=== PATIENT | male | born 1945 | race Caucasian/White ===

== ENCOUNTER 2019-12-23 16:24 | Emergency (ER) | payer MEDICARE ==
[~2019-12-23] VITALS: Ht 170.2 cm; Wt 81.8 kg
[~2019-12-23 16:24] MED LIST: ASPI-611 PO; ATOR80TA PO; CALC-793 PO; MULT-1085 PO; VALS80TA2 PO; VITA1TAB20 PO; VITE1000C PO
[2019-12-23] MEDS ORDERED: bacitracin 15gm ointment TP ONE (18:35)
[2019-12-23 18:54] VITALS: BP 155/75
== END 2019-12-23 18:55 | disposition home or self-care (01) ==
LOC: ER 16:25
DX: S41.102A Unspecified open wound of left upper arm, initial encounter (principal); S41.101A Unspecified open wound of right upper arm, initial encounter; I48.91 Unspecified atrial fibrillation; Z86.73 Personal history of transient ischemic attack (TIA), and cerebral infarction without residual deficits; Z79.82 Long term (current) use of aspirin; Z79.899 Other long term (current) drug therapy; W18.49XA Other slipping, tripping and stumbling without falling, initial encounter; Y93.89 Activity, other specified; Y92.89 Other specified places as the place of occurrence of the external cause; Y99.8 Other external cause status
CPT/HCPCS: 70450; 72125; 99285

== ENCOUNTER 2020-06-02 08:32 | Inpatient (IN) | payer MEDICARE ==
[~2020-06-02] VITALS: Ht 177.8 cm; Wt 84.1 kg
[2020-06-02] MEDS ORDERED: normal saline 1000ml 1,000 ML IV ONE (09:20)
[2020-06-02 09:58] LABS: BASOPHILS % (AUTO) 0.2 % (0-1); EOSINOPHILS % (AUTO) 0 % (0-6); HEMATOCRIT 32.5 % (42.0-52.0); LYMPHOCYTES # (AUTO) 0.8 X10'3 (1.1-4.8); LYMPHOCYTES % (AUTO) 4.9 % (21-51); MEAN CORPUSCULAR HEMOGLOBIN 32.3 PG (27.0-31.0); MEAN CORPUSCULAR HGB CONC 33.9 g/dL (33.0-36.5); MEAN CORPUSCULAR VOLUME 95.2 FL (78-98); MEAN PLATELET VOLUME 9.1 FL (7.4-10.4); MONOCYTES # (AUTO) 1.1 X10'3 (0-0.9); MONOCYTES % (AUTO) 7.2 % (2-12); NEUTROPHILS # (AUTO) 13.7 X10'3 (1.8-7.7); NEUTROPHILS % (AUTO) 87.7 % (42-75); PLATELET COUNT 209 X10'3 (140-440); RED BLOOD COUNT 3.41 X10'6 (4.70-6.10); RED CELL DISTRIBUTION WIDTH 13.5 % (11.5-14.5); WHITE BLOOD COUNT 15.6 X10'3 (4.5-11.0)
[2020-06-02 10:13] LABS: ALANINE AMINOTRANSFERASE 30 U/L (12-78); ALBUMIN 2.3 G/DL (3.4-5.0); ALBUMIN/GLOBULIN RATIO 0.9 (1.1-1.5); ALKALINE PHOSPHATASE 39 IU/L (46-116); ANION GAP 5 (8-16); ASPARTATE AMINO TRANSFERASE 20 U/L (10-37); BILIRUBIN,TOTAL 0.4 MG/DL (0.1-1.0); BLOOD UREA NITROGEN 30 MG/DL (7-18); BUN/CREATININE RATIO 31.6 (5.4-32.0); CALCIUM 7.9 MG/DL (8.5-10.1); CHLORIDE 109 MMOL/L (99-107); CREATININE 0.95 MG/DL (0.60-1.10); GLUCOSE 232 MG/DL (70-104); POTASSIUM 4.3 MMOL/L (3.5-5.1); SODIUM 140 MMOL/L (135-145); TOTAL CARBON DIOXIDE 25.9 MMOL/L (24-32); TOTAL PROTEIN 4.8 G/DL (6.4-8.2); eGFR 77 ML/MIN
[2020-06-02 10:20] LABS: MAGNESIUM 1.7 MG/DL (1.5-2.4)
[2020-06-02 10:50] LABS: CLARITY,URINE CLEAR (Clear); COLOR,URINE STRAW (Yellow); GLUCOSE, URINE 250 mg/dl (Neg); KETONES,URINE 15 mg/dl (Neg); LEUKOCYTE ESTERASE ,URINE NEGATIVE (Neg); NITRITES, URINE NEGATIVE (Neg); OCCULT BLOOD,URINE NEGATIVE (Neg); PROTEIN,URINE NEGATIVE (Neg); UROBILINOGEN,URINE 0.2 E.U/dL (0.2-1.0)
[2020-06-02 10:53] LABS: UA COLLECTION TYPE CLN CATCH MIDSTREAM
[2020-06-02] MEDS ORDERED: ondansetron/PF 4mg/2ml inj IV PRN (13:20)
[2020-06-02] MEDS ORDERED: mag hydrox/Alum hydrox/simeth 30ml oral suspension PO PRN (13:20)
[2020-06-02] MEDS ORDERED: morphine 2 MG/ML inj. syringe IV PRN ×2 (13:20)
[2020-06-02] MEDS ORDERED: magnesium hydroxide 30ml (MOM) UD suspension PO PRN (13:20)
[2020-06-02] MEDS ORDERED: acetaminophen 325mg tablet PO PRN (13:20)
[2020-06-02] MEDS ORDERED: RIVA20TA PO (13:45)
[2020-06-02] MEDS ORDERED: METR-159 PO (13:45)
[2020-06-02] MEDS ORDERED: ATOR20TA66 PO (13:45)
[2020-06-02] MEDS ORDERED: HYDR12.55 PO (13:45)
[2020-06-02] MEDS ORDERED: LOSA100T57 PO (13:45)
[2020-06-02] MEDS ORDERED: PRED20TA PO (13:45)
[2020-06-02 15:27] VITALS: BP 191/65
[2020-06-02] MEDS: normal saline 1000ml 1,000 ML IV SCH ×2 (16:04→23:20)
[2020-06-02] MEDS ORDERED: CHOL10006 PO (18:14)
--- NOTE | 2020-06-02 18:30 | NUR ---
Patient in room MED 308. I have received report from Lakesha SMITH and had the opportunity to ask questions and assume patient care.
[2020-06-02 19:30] VITALS: BP_SYST 121; BP_SYST 125; BP_SYST 97; BP_DIAS 54; BP_DIAS 65; BP_DIAS 67
--- NOTE | 2020-06-02 19:55 | NUR ---
pt had 2 lg black BM, said no hx of having. Informed Hosp, order for occult stool sample.
[2020-06-02] MEDS ORDERED: rivaroxaban 20mg tablet PO SCH (21:00)
[2020-06-02] MEDS: atorvastatin 20mg tablet PO SCH (21:09)
[2020-06-02] MEDS: predniSONE 20 mg tablet PO SCH (21:10)
[2020-06-02] MEDS: losartan 50mg tablet PO SCH (21:10)
[2020-06-02 22:30] VITALS: BP 125/67
[2020-06-02 23:06] LABS: OCCULT BLOOD STOOL POSITIVE (Neg)
[2020-06-03] VITALS (12 sets, daily range): BP systolic 97–191; BP diastolic 36–77
[2020-06-03] MEDS: normal saline 1000ml 1,000 ML IV SCH (01:40)
--- NOTE | 2020-06-03 05:32 | NUR ---
Page Sent promotional table spacer PAGER ID: [phone] MESSAGE: Pt Harjit Mccullough rm #308, positive occult sample, Pt on Xartelto, do you want any Coags drawn? -Alison #[id number] Addendum: 06/03/20 at 0533 by Yadira James RN Kj Mitchell not Hale Addendum: 06/03/20 at 0547 by Yadira James RN Not aric Mccullough, wrong name, Name is Kj Hanna
--- NOTE | 2020-06-03 05:47 | NUR ---
Per Hospitalist no new orders
[2020-06-03 06:20] LABS: BASOPHILS % (AUTO) 0.2 % (0-1); EOSINOPHILS % (AUTO) 0 % (0-6); HEMATOCRIT 25.2 % (42.0-52.0); HEMOGLOBIN 8.7 g/dl (14.0-17.9); LYMPHOCYTES # (AUTO) 1.5 X10'3 (1.1-4.8); LYMPHOCYTES % (AUTO) 12.1 % (21-51); MEAN CORPUSCULAR HEMOGLOBIN 32.8 PG (27.0-31.0); MEAN CORPUSCULAR HGB CONC 34.7 g/dL (33.0-36.5); MEAN CORPUSCULAR VOLUME 94.7 FL (78-98); MONOCYTES # (AUTO) 0.7 X10'3 (0-0.9); MONOCYTES % (AUTO) 5.4 % (2-12); NEUTROPHILS # (AUTO) 10.3 X10'3 (1.8-7.7); NEUTROPHILS % (AUTO) 82.3 % (42-75); PLATELET COUNT 177 X10'3 (140-440); RED BLOOD COUNT 2.66 X10'6 (4.70-6.10); RED CELL DISTRIBUTION WIDTH 13.9 % (11.5-14.5); WHITE BLOOD COUNT 12.6 X10'3 (4.5-11.0)
--- NOTE | 2020-06-03 06:20 | NUR ---
Problems reprioritized. Patient report given, questions answered & plan of care reviewed with Keisha SMITH.
[2020-06-03 06:34] LABS: ALBUMIN 2.2 G/DL (3.4-5.0); ANION GAP 8 (8-16); BLOOD UREA NITROGEN 36 MG/DL (7-18); BUN/CREATININE RATIO 45.6 (5.4-32.0); CALCIUM 7.7 MG/DL (8.5-10.1); CHLORIDE 110 MMOL/L (99-107); CREATININE 0.79 MG/DL (0.60-1.10); GLUCOSE 176 MG/DL (70-104); SODIUM 143 MMOL/L (135-145); TOTAL CARBON DIOXIDE 25.1 MMOL/L (24-32); eGFR > 90 ML/MIN
[2020-06-03] MEDS ORDERED: VITAMIN D3 PO SCH (08:00)
[2020-06-03] MEDS ORDERED: CALCIUM CARBONATE PO SCH (08:00)
[2020-06-03] MEDS ORDERED: [UNRECOGNIZED DRUG - OTHER] PO SCH (08:00)
[2020-06-03] MEDS ORDERED: pantoprazole 40 MG vial IV ONE (10:05)
[2020-06-03 10:28] LABS: HEMOGLOBIN A1C 7.3 % (4.5-6.2)
--- NOTE | 2020-06-03 10:37 | NUR ---
Pacer interrogated - per pacemaker rep, PPM working perfectly, no episodes or abnormal firing. Paged Dr. Morataya: PAGER ID: [phone] MESSAGE: RM 308 - PACER INTERROGATION: NO ISSUES, WORKING PERFECTLY. FYI A1C 7.3 - INITIATE HYPERGLYCEMIA PROTOCOL? THANKS ACCE [id number]
[2020-06-03] MEDS: multivitamins, therapeutics tablet PO SCH (11:33)
[2020-06-03] MEDS: HYDROchlorothiazide 12.5mg capsule PO SCH (11:33)
[2020-06-03] MEDS: vitamin B comp w/Vit. C tab 1 TAB TABLET PO SCH (11:33)
[2020-06-03] MEDS: vitamin D (cholecalciferol) 1,000 unit tablet PO SCH (11:34)
[2020-06-03] MEDS: pantoprazole 40MG/NS 100ML BAG 100 ML IV SCH ×2 (11:36→19:01)
[2020-06-03] MEDS ORDERED: MIDAZolam 5mg/5ml vial ONE (15:19)
[2020-06-03] MEDS ORDERED: LIDOcaine Viscous 15ml cup ONE (15:19)
[2020-06-03] MEDS ORDERED: fentaNYL/PF 50MCG/1 ML 2ML syringe ONE (15:19)
[2020-06-03] MEDS ORDERED: epiNEPHrine 0.1mg/ml 10ml syringe ONE (16:26)
--- NOTE | 2020-06-03 18:30 | NUR ---
Patient in room MED 308. I have received report from Keisha SMITH and had the opportunity to ask questions and assume patient care.
--- NOTE | 2020-06-03 18:30 | NUR ---
I used a tongue depressor, and patient had a gag reflux. per MD orders, once patient had a gag reflux, then diet may be changed from NPO to clear liquids.
[2020-06-03] MEDS: losartan 50mg tablet PO SCH (21:07)
[2020-06-03] MEDS: predniSONE 20 mg tablet PO SCH (21:07)
[2020-06-03] MEDS: atorvastatin 20mg tablet PO SCH (21:08)
[2020-06-04] VITALS (10 sets, daily range): BP systolic 95–143; BP diastolic 31–56
[2020-06-04] MEDS: pantoprazole 40MG/NS 100ML BAG 100 ML IV SCH ×3 (00:11→05:55)
[2020-06-04] MEDS: normal saline 1000ml 1,000 ML IV SCH ×3 (00:11→15:20)
[2020-06-04 05:31] LABS: BASOPHILS % (AUTO) 0.1 % (0-1); EOSINOPHILS % (AUTO) 0 % (0-6); HEMOGLOBIN 7.4 g/dl (14.0-17.9); LYMPHOCYTES # (AUTO) 1.1 X10'3 (1.1-4.8); MEAN CORPUSCULAR HEMOGLOBIN 32.6 PG (27.0-31.0); MEAN CORPUSCULAR HGB CONC 34.5 g/dL (33.0-36.5); MEAN CORPUSCULAR VOLUME 94.5 FL (78-98); MONOCYTES # (AUTO) 0.4 X10'3 (0-0.9); MONOCYTES % (AUTO) 4.3 % (2-12); NEUTROPHILS # (AUTO) 7.7 X10'3 (1.8-7.7); NEUTROPHILS % (AUTO) 83.6 % (42-75); PLATELET COUNT 174 X10'3 (140-440); RED BLOOD COUNT 2.28 X10'6 (4.70-6.10); RED CELL DISTRIBUTION WIDTH 13.6 % (11.5-14.5); WHITE BLOOD COUNT 9.2 X10'3 (4.5-11.0)
[2020-06-04 05:35] LABS: ALBUMIN 2.3 G/DL (3.4-5.0); ANION GAP 3 (8-16); BLOOD UREA NITROGEN 17 MG/DL (7-18); BUN/CREATININE RATIO 18.1 (5.4-32.0); CALCIUM 7.8 MG/DL (8.5-10.1); CHLORIDE 111 MMOL/L (99-107); CREATININE 0.94 MG/DL (0.60-1.10); GLUCOSE 175 MG/DL (70-104); POTASSIUM 3.9 MMOL/L (3.5-5.1); SODIUM 142 MMOL/L (135-145); eGFR 78 ML/MIN
[2020-06-04 06:00] LABS: HEMATOCRIT 21.5 % (42.0-52.0)
--- NOTE | 2020-06-04 06:10 | NUR ---
Dr. Reynolds called at 0610 regarding patient critical lab result of HGB 7.4, HCT 21.5. Doctor said for dayshift nurse to pass this information the the daytime doctor. no new orders at this time
--- NOTE | 2020-06-04 06:14 | NUR ---
Patient in room MED 308. I have received report from Addy SMITH and had the opportunity to ask questions and assume patient care. Addendum: 06/04/20 at 0617 by Mya Gupta RN Problems reprioritized. Patient report given, questions answered & plan of care reviewed with Addy SMITH.
--- NOTE | 2020-06-04 06:55 | NUR ---
Patient in room MED 308. I have received report from Keren SMITH and had the opportunity to ask questions and assume patient care.
[2020-06-04] MEDS: HYDROchlorothiazide 12.5mg capsule PO SCH (07:33)
[2020-06-04] MEDS: vitamin B comp w/Vit. C tab 1 TAB TABLET PO SCH (07:33)
[2020-06-04] MEDS: multivitamins, therapeutics tablet PO SCH (07:33)
[2020-06-04] MEDS: vitamin D (cholecalciferol) 1,000 unit tablet PO SCH (07:34)
--- NOTE | 2020-06-04 09:36 | NUR ---
Pt with A1c 7.3%, DM education not warranted at this time given well controlled for geriatric age. Will continue to follow. Addendum: 06/04/20 at [address] Amended: Links added.
--- NOTE | 2020-06-04 10:20 | NUR ---
PAGER ID: [phone] MESSAGE: [phone] Kj Hanna: Can we advance pts meal from clear liquid? tolerated well. thanks joshua [phone]
--- NOTE | 2020-06-04 10:37 | NUR ---
received orders to advance to full liquid diet per dr. ellis
--- NOTE | 2020-06-04 10:47 | NUR ---
PAGER ID: [phone] MESSAGE: Vijay Shye. Underwood: Can we change IV protonix to PO? thanks joshua [phone]
--- NOTE | 2020-06-04 17:59 | NUR ---
Problems reprioritized. Patient report given, questions answered & plan of care reviewed with cedric salazar.
--- NOTE | 2020-06-04 18:00 | NUR ---
Patient in room MED 308. I have received report from Priyanka and had the opportunity to ask questions and assume patient care.
--- NOTE | 2020-06-04 22:00 | NUR ---
Obtained vital signs and noticed right lower forearm had purple/bruised skin at site of IV where blood infused; arm assessed for infiltration, IV patent; called MD Angle MD came to floor to assess site. stated to elevate, warm packs to site, discontinued IV: no other orders at this time. Anthony SMITH Addendum: 06/04/20 at 2351 by Liliana Canseco RN photographed site, pictures in chart Anthony
[2020-06-04] MEDS: pantoprazole 40mg Tablet.DR PO SCH (22:01)
[2020-06-04] MEDS: predniSONE 20 mg tablet PO SCH (22:01)
[2020-06-04] MEDS: atorvastatin 20mg tablet PO SCH (22:01)
[2020-06-04] MEDS: losartan 50mg tablet PO SCH (22:02)
[2020-06-05] MEDS: normal saline 1000ml 1,000 ML IV SCH (01:20)
[2020-06-05 02:14] LABS: ALBUMIN 2.6 G/DL (3.4-5.0); ANION GAP 7 (8-16); BLOOD UREA NITROGEN 11 MG/DL (7-18); BUN/CREATININE RATIO 11.5 (5.4-32.0); CALCIUM 8.2 MG/DL (8.5-10.1); CHLORIDE 105 MMOL/L (99-107); CREATININE 0.96 MG/DL (0.60-1.10); GLUCOSE 165 MG/DL (70-104); POTASSIUM 3.7 MMOL/L (3.5-5.1); SODIUM 140 MMOL/L (135-145); TOTAL CARBON DIOXIDE 27.6 MMOL/L (24-32); eGFR 76 ML/MIN
[2020-06-05 02:24] LABS: BASOPHILS % (AUTO) 0.2 % (0-1); EOSINOPHILS % (AUTO) 0.4 % (0-6); HEMATOCRIT 25.9 % (42.0-52.0); LYMPHOCYTES # (AUTO) 0.9 X10'3 (1.1-4.8); LYMPHOCYTES % (AUTO) 8.8 % (21-51); MEAN CORPUSCULAR HEMOGLOBIN 32.6 PG (27.0-31.0); MEAN CORPUSCULAR HGB CONC 34.7 g/dL (33.0-36.5); MEAN CORPUSCULAR VOLUME 93.9 FL (78-98); MEAN PLATELET VOLUME 9.8 FL (7.4-10.4); MONOCYTES # (AUTO) 0.4 X10'3 (0-0.9); MONOCYTES % (AUTO) 4.1 % (2-12); NEUTROPHILS # (AUTO) 9.2 X10'3 (1.8-7.7); NEUTROPHILS % (AUTO) 86.5 % (42-75); PLATELET COUNT 186 X10'3 (140-440); RED BLOOD COUNT 2.75 X10'6 (4.70-6.10); RED CELL DISTRIBUTION WIDTH 14.1 % (11.5-14.5); WHITE BLOOD COUNT 10.7 X10'3 (4.5-11.0)
[2020-06-05 05:42] VITALS: BP_SYST 110; BP_SYST 132; BP_SYST 135; BP_DIAS 40; BP_DIAS 45
[2020-06-05 06:00] VITALS: BP 112/47
--- NOTE | 2020-06-05 06:44 | NUR ---
Patient in room MED 308. I have received report from marie steele and had the opportunity to ask questions and assume patient care.
[2020-06-05] MEDS: vitamin B comp w/Vit. C tab 1 TAB TABLET PO SCH (08:00)
[2020-06-05] MEDS: vitamin D (cholecalciferol) 1,000 unit tablet PO SCH (08:22)
[2020-06-05] MEDS: pantoprazole 40mg Tablet.DR PO SCH (08:23)
[2020-06-05] MEDS: HYDROchlorothiazide 12.5mg capsule PO SCH (08:23)
[2020-06-05] MEDS: multivitamins, therapeutics tablet PO SCH (08:23)
[2020-06-05 10:00] VITALS: BP 115/53
[2020-06-05] MEDS ORDERED: PANT-47 PO (12:01)
--- NOTE | 2020-06-05 14:35 | NUR ---
reviewed all discharge instructions,including f/u with PCP within 1 week. SL dc'd from [facility] ,site clear, prescription confirmed at [facility] in [place],reviewed all dietary restrictions,pt dc'd via w/c with all belongings
== END 2020-06-05 14:35 | disposition home or self-care (01) | DRG 378 ==
LOC: ER 08:33 → ED HOLD 13:17 → MED 3N 15:08 → OBSVTOIN 06-03 10:25
PROVIDERS: ADMIT Internal Medicine; ATTEND Family Medicine
PROC: 0DB68ZX Excision of Stomach, Via Natural or Artificial Opening Endoscopic, Diagnostic (ICD-10-PCS; principal; 2020-06-03)
PROC: 30233N1 Transfusion of Nonautologous Red Blood Cells into Peripheral Vein, Percutaneous Approach (ICD-10-PCS; 2020-06-04)
DX: K25.4 Chronic or unspecified gastric ulcer with hemorrhage (principal); D62 Acute posthemorrhagic anemia; R55 Syncope and collapse; I48.0 Paroxysmal atrial fibrillation; E86.0 Dehydration; I25.2 Old myocardial infarction; Z95.0 Presence of cardiac pacemaker; Z95.1 Presence of aortocoronary bypass graft; Z86.73 Personal history of transient ischemic attack (TIA), and cerebral infarction without residual deficits; Z79.01 Long term (current) use of anticoagulants; I25.10 Atherosclerotic heart disease of native coronary artery without angina pectoris; E78.5 Hyperlipidemia, unspecified; K29.70 Gastritis, unspecified, without bleeding
CPT/HCPCS: 36415; 36430; 43227; 43239; 43243; 43255; 71045; 76937; 80048; 80053; 81003; 82272; 83036; 83735; 83880; 84484; 85025; 86885; 86900; 86901; 86920; 87081; 93005; 96360; 99152; 99285; A4620; C9113; G0378; J0171; J2250; J2405; J3010; J7030; J7040; J7512; P9016

== ENCOUNTER 2020-06-07 18:37 | Emergency (ER) | payer MEDICARE ==
[~2020-06-07] VITALS: Ht 170.2 cm; Wt 81.8 kg
[~2020-06-07 18:37] MED LIST changes: -ASPI-611 PO; +ATOR20TA66 PO; -ATOR80TA PO; -CALC-793 PO; +CHOL10006 PO; +HYDR12.55 PO; +LOSA100T57 PO; +PANT-47 PO; +PRED20TA PO; +RIVA20TA PO; -VALS80TA2 PO
--- NOTE | 2020-06-07 19:04 | NUR ---
DR YANEZ MADE AWARE OF PATIENT, NO NEW ORDERS AT THIS TIME
--- NOTE | 2020-06-07 20:26 | NUR ---
SNELLEN CHART 20/70 RIGHT EYE 20/20 LEFT EYE
--- NOTE | 2020-06-07 21:41 | NUR ---
PATIENT IN NO ACUTE STRESS VERBALIZED THE APPRECIATION FOR PATIENTS PATIENCE, CN AWARE PATIENT HAS NOT BEEN SEEN AT THIS POINT
[2020-06-07] MEDS ORDERED: tropicamide 0.5% ophthalmic drops 15ml RIGHTEYE ONE (22:25)
[2020-06-07 23:39] VITALS: BP 137/81
== END 2020-06-07 23:40 | disposition home or self-care (01) ==
LOC: ER 18:38
DX: H33.20 Serous retinal detachment, unspecified eye (principal); R42 Dizziness and giddiness; R51.9 Headache, unspecified; I48.91 Unspecified atrial fibrillation; F17.200 Nicotine dependence, unspecified, uncomplicated; Z86.73 Personal history of transient ischemic attack (TIA), and cerebral infarction without residual deficits; Z98.890 Other specified postprocedural states
CPT/HCPCS: 93005; 99283

== ENCOUNTER 2025-06-03 07:54 | Outpatient (CLI) | payer MEDICARE ==
[~2025-06-03 07:54] MED LIST changes: +AMLO5TAB16 PO; -ATOR20TA66 PO; +ATOR40TA72 PO; +CALC300T4 PO; -CHOL10006 PO; +CHOL100061 PO; +DULO20CA18 PO; +EVOL140S2 SQ; +FERR-28 PO; -HYDR12.55 PO; -LOSA100T57 PO; +MECO10005 PO; +OMEG100037 PO; -PANT-47 PO; -PRED20TA PO; +TAMS-55 PO; +VITA-268 PO; -VITA1TAB20 PO; -VITE1000C PO
[2025-06-03 08:25] LABS: MEAN PLATELET VOLUME 9.2 FL (7.4-10.4); RED CELL DISTRIBUTION WIDTH 15.4 % (11.5-14.5)
[2025-06-03 08:38] LABS: CREATININE 0.97 MG/DL (0.60-1.10); TOTAL CARBON DIOXIDE 29.5 MMOL/L (24-32); eGFR 74 ML/MIN
--- NOTE | 2025-06-03 19:28 | RADIOLOGY REPORT ---
CT POST WATCHMAN INDICATION: PRESENCE OF OTHER CARDIAC IMPLANTS AND GRAFTS TECHNIQUE: CT cardiac imaging for pulmonary vein analysis has been obtained. 3- D, MIP, and MPR images obtained. All CT scans at this facility use dose modulation, iterative reconstruction, and/or weight based dosing when appropriate to reduce radiation dose to as low as reasonably achievable. COMPARISON: None available at the time of dictation. STUDY QUALITY: Good FINDINGS: LEFT ATRIAL APPENDAGE: Upon multiphasic evaluation, no visualized contrast extension on early or delayed images beyond the atrial appendage occlusion device. CARDIAC CHAMBERS: Question minimal left concentric ventricular hypertrophy measuring up to 15 mm of the basal septal however CT evaluation has low accuracy. Correlate with echocardiogram and consider MR cardiac examination for more accurate evaluation if clinically indicated. OTHER: Coronary artery disease. 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 Trunk measures up to 2.9 cm in length. Low lung volumes, which cause crowding of the bronchovascular markings. Prominence of the main pulmonary artery, which may indicate pulmonary hypertension. IMPRESSION: Successful complete occlusion of the left atrial appendage.
== END 2025-06-03 23:59 | disposition home or self-care (01) ==
LOC: RAD 07:54
PROVIDERS: ATTEND Student in an Organized Health Care Education/Training Program
DX: I25.10 Atherosclerotic heart disease of native coronary artery without angina pectoris (principal); I70.90 Unspecified atherosclerosis; Z95.818 Presence of other cardiac implants and grafts
CPT/HCPCS: 36415; 71275; 75572; 80053; 85025; Q9967